=== PATIENT | male | born 1970 | race Caucasian/White ===

== ENCOUNTER 2021-05-14 20:18 | Emergency (ER) | payer OTHER ==
[2021-05-14] MEDS ORDERED: Lorazepam 2 MG/ML VIAL ONE (20:58)
[2021-05-14] MEDS ORDERED: Fleet Enema 133 ML BOT PR SCH (22:45)
== END 2021-05-15 00:02 | disposition home or self-care (01) ==
LOC: ERS 20:18
DX: K56.41 Fecal impaction (principal); Z79.899 Other long term (current) drug therapy
CPT/HCPCS: 96372; 99283; J2060